=== PATIENT | male | born 1960 | race Caucasian/White ===

== ENCOUNTER 2021-07-02 21:30 | Emergency (ER) | payer OTHER ==
[2021-07-02] MEDS ORDERED: Sodium Chloride 0.9% 1,000 ML IV STA (22:07)
[2021-07-02] MEDS ORDERED: HYDROmorphone 0.5 MG/0.5 ML Syringe IVPUSH ONE ×2 (22:07→22:50)
[2021-07-02] MEDS ORDERED: Ketorolac 30 MG/ML SDV IVPUSH ONE (22:07)
[2021-07-02] MEDS ORDERED: Ondansetron 4 MG/2 ML SDV IVPUSH ONE (22:07)
--- NOTE | 2021-07-02 22:16 | EDM.PDOC ---
<Glen Melendez - Last Filed: 07/02/21 23:48> ED HPI GENERAL MEDICAL PROBLEM - General Chief Complaint: Flank Pain Stated Complaint: ABDOMINAL PAIN Time Seen by Provider: 07/02/21 22:03 - Related Data Allergies Allergy/AdvReac Type Severity Reaction Status Date / Time No Known Allergies Allergy Verified 07/02/21 21:59 Course - Re-Assessments/Exams Free Text/Narrative Re-Assessment/Exam: 07/02/21 23:48 Taking over for Albertina. His CT shows moderate left hydronephrosis secondary to a 3mm calculus at the left UVJ. Fatty infiltration of the liver, a finding which can be due to benign steatosis versus alcoholic or nonalcoholic steatohepatitis. There is cholelithiasis without evidence of acute cholecystitis. He feels better. Albertina has some prescriptions for him. I will discharge him home. Departure - Departure Time of Disposition: 23:50 Disposition: Home, Self-Care 01 Clinical Impression: Kidney stone on left side, Ureteral colic, Ureteral calculus, left - Discharge Information Instructions: Kidney Stones, [id number] Referrals: Yakelin Browne MD [Primary Care Provider] - Forms: ED Department Discharge Additional Instructions: Take routine Tylenol and ibuprofen as needed for discomfort. For pain not relieved by this, use the oxycodone with Tylenol as prescribed. Do not work or drive for 12 hours after taking this as it can be sedating. Take Zofran as needed for nausea. Strain urine each time that you void. Follow-up with your primary care provider at their next available visit. Return to ER for any new or worsening symptoms. <Albertina Jansen - Last Filed: 07/05/21 21:46> ED HPI GENERAL MEDICAL PROBLEM - General Source of Information: Reports: Patient, RN Notes Reviewed History Limitations: Reports: No Limitations - History of Present Illness INITIAL COMMENTS - FREE TEXT/NARRATIVE: Is a 60-year-old male presenting to the emergency department with complaints of acute onset of left flank pain. Symptoms began approximately 2 hours prior to coming to ER. He describes sharp stabbing pain in his left flank which radiates down into his left groin. States that he feels it slightly in his penis. He has had nausea and vomiting as well. Denies any history of kidney stones. Has not noticed any blood in his urine. Denies any fever or chills. He tried taking Pepto-Bismol, however he vomited back up. Denies any chronic medical conditions. Left Flank Pain Score (Numeric/FACES): 10 Past Medical History HEENT History: Reports: Impaired Vision Psychiatric History: Reports: Depression Endocrine/Metabolic History: Reports: Hypothyroidism ED ROS GENERAL - Review of Systems Review Of Systems: Comprehensive ROS is negative, except as noted in HPI. ED EXAM, RENAL/ - Physical Exam Exam: See Below Exam Limited By: No Limitations General Appearance: Alert, Mild Distress Respiratory/Chest: No Respiratory Distress, Lungs Clear, Normal Breath Sounds, No Accessory Muscle Use, Chest Non-Tender Cardiovascular: Normal Peripheral Pulses, Regular Rate, Rhythm, No Edema, No Gallop, No JVD, No Murmur, No Rub GI/Abdominal: Normal Bowel Sounds, Soft, Non-Tender, No Organomegaly, No Distention, No Abnormal Bruit, No Mass Back Exam: Normal Inspection, Full Range of Motion, CVA Tenderness (L). No: CVA Tenderness (R) Neurological: Alert, Oriented, CN II-XII Intact, Normal Cognition, Normal Gait, Normal Reflexes, No Motor/Sensory Deficits Psychiatric: Anxious Skin Exam: Warm, Dry, Intact, Normal Color, No Rash Course - Vital Signs Last Recorded V/S: Last Vital Signs Temp 97.0 F 07/02/21 21:54 Pulse 63 07/02/21 21:54 Resp 20 07/02/21 21:54 BP 125/96 H 07/02/21 21:54 Pulse Ox 100 07/02/21 21:54 - Orders/Labs/Meds Labs: Laboratory Tests 07/02/21 07/02/21 07/02/21 Range/Units 22:10 22:20 22:20 WBC 13.59 H (4.23-9.07) K/mm3 RBC 4.68 (4.63-6.08) M/mm3 Hgb 15.1 (13.7-17.5) gm/dl Hct 44.5 (40.1-51.0) % MCV 95.1 H (79.0-92.2) fl MCH 32.3 H (25.7-32.2) pg MCHC 33.9 (32.2-35.5) g/dl RDW Std Deviation 44.2 H (35.1-43.9) fL Plt Count 317 (163-337) K/mm3 MPV 9.5 (9.4-12.3) fl Neut % (Auto) 69.8 H (34.0-67.9) % Lymph % (Auto) 19.2 L (21.8-53.1) % [place] % (Auto) 9.8 (5.3-12.2) % Eos % (Auto) 0.7 L (0.8-7.0) Baso % (Auto) 0.3 (0.1-1.2) % Neut # (Auto) 9.48 H (1.78-5.38) K/mm3 Lymph # (Auto) 2.61 (1.32-3.57) K/mm3 [place] # (Auto) 1.33 H (0.30-0.82) K/mm3 Eos # (Auto) 0.10 (0.04-0.54) K/mm3 Baso # (Auto) 0.04 (0.01-0.08) K/mm3 Sodium 139 (136-145) mEq/L Potassium 4.2 (3.5-5.1) mEq/L Chloride 103 (98-107) mEq/L Carbon Dioxide 23 (21-32) mEq/L Anion Gap 17.2 H (5-15) BUN 24 H (7-18) mg/dL Creatinine 1.3 (0.7-1.3) mg/dL Est Cr Clr Drug Dosing 55.08 mL/min Estimated GFR (MDRD) 56 (>60) mL/min BUN/Creatinine Ratio 18.5 H (14-18) Glucose 135 H (70-99) mg/dL Calcium 9.2 (8.5-10.1) mg/dL Total Bilirubin 0.5 (0.2-1.0) mg/dL AST 37 (15-37) U/L ALT 59 (16-63) U/L Alkaline Phosphatase 47 (46-116) U/L C-Reactive Protein <0.2 (<1.0) mg/dL Total Protein 7.4 (6.4-8.2) g/dl Albumin 3.9 (3.4-5.0) g/dl Globulin 3.5 gm/dL Albumin/Globulin Ratio 1.1 (1-2) Urine Color Yellow (Yellow) Urine Appearance Clear (Clear) Urine pH 5.5 (5.0-8.0) Ur Specific [place] > or = 1.030 (1.005-1.030) Urine Protein Negative (Negative) Urine Glucose (UA) Negative (Negative) Urine Ketones Negative (Negative) Urine Occult Blood 3+ H (Negative) Urine Nitrite Negative (Negative) Urine Bilirubin Negative (Negative) Urine Urobilinogen 0.2 (0.2-1.0) Ur Leukocyte Esterase Negative (Negative) Urine RBC 50-75 H (0-5) /hpf Urine WBC 0-5 (0-5) /hpf Ur Squamous Epith Cells 0-5 (0-5) /hpf Urine Bacteria Few (FEW) /hpf Urine Mucus Few (FEW) /hpf Meds: Medications Discontinued Medications Generic Name Dose Route Start Last Admin Trade Name Freq PRN Reason Stop Dose Admin Hydromorphone HCl 0.5 mg 07/02/21 22:07 07/02/21 22:44 Hydromorphone 0.5 Mg/0.5 Ml Syringe IVPUSH 07/02/21 22:08 0.5 mg ONETIME ONE Administration Hydromorphone HCl 0.5 mg 07/02/21 22:50 07/02/21 23:02 Hydromorphone 0.5 Mg/0.5 Ml Syringe IVPUSH 07/02/21 22:51 0.5 mg ONETIME ONE Administration Sodium Chloride 1,000 mls @ 150 mls/hr 07/02/21 22:07 07/02/21 22:44 Normal Saline IV 07/03/21 04:46 150 mls/hr NOW STA Administration Ketorolac Tromethamine 30 mg 07/02/21 22:07 07/02/21 22:44 Ketorolac 30 Mg/Ml Sdv IVPUSH 07/02/21 22:08 30 mg ONETIME ONE Administration Ondansetron HCl 4 mg 07/02/21 22:07 07/02/21 22:44 Ondansetron 4 Mg/2 Ml Sdv IVPUSH 07/02/21 22:08 4 mg ONETIME ONE Administration - Re-Assessments/Exams Free Text/Narrative Re-Assessment/Exam: Patient is a 60-year-old male presenting to the emergency department with complaints of acute onset of left flank pain nausea and vomiting. On exam, patient has left CVA tenderness. Exam is otherwise unremarkable. Presentation is concerning for kidney stone. I have ordered blood work, urinalysis, CT scan of the abdomen pelvis without contrast. I will give IV fluids, Dilaudid, Toradol, and Zofran. Departure - Departure Condition: Good - Discharge Information *PRESCRIPTION DRUG MONITORING PROGRAM REVIEWED*: No *COPY OF PRESCRIPTION DRUG MONITORING REPORT IN PATIENT SOCO: No Sepsis Event Note (ED) - Evaluation Sepsis Screening Result: No Definite Risk
--- NOTE | 2021-07-03 07:30 | CT ---
CT abdomen and pelvis Technique: Multiple axial sections were obtained from above the dome of the diaphragm inferiorly through the pubic symphysis. Intravenous and oral contrast were not utilized. Study has been performed as a pulmonary angiogram protocol. Comparison: No prior abdominal imaging is available. Findings: Left kidney collecting system is dilated. Left ureter is dilated with mild surrounding inflammatory change. These findings are caused by an obstructing calculus within the distal left ureter measuring approximately 3.5 mm located close to the UVJ. Several minimal nonobstructing calculi are seen within the left kidney. Cyst is noted within the right kidney measuring 1.5 cm. The visualized lung bases show nothing acute. Patchy areas of fatty infiltration are seen within the liver. Spleen shows calcified granulomas. Adrenal glands show no nodule. Pancreas shows no discrete abnormality. Small calcified gallstones are seen within the gallbladder. Abdominal aorta shows no aneurysm. No retroperitoneal adenopathy is seen. Appendix is seen which is normal in size. No pelvic mass or adenopathy is seen. Bone window settings were reviewed which show minimal scattered degenerative change within the spine. The most prominent finding is disc space narrowing at L5-S1. Impression: 1. Obstructing stone within the distal left ureter measuring approximately 3.5 mm. 2. Several small nonobstructing calculi within the left kidney. Small right renal cyst is seen. 3. Small calcified gallstones. Fatty infiltration within the liver. Incidental granuloma within the spleen. 4. No other acute abnormality is appreciated on noncontrast CT study of the abdomen and pelvis. Diagnostic code #3 I agree with preliminary report from [facility], finalized on 07/03/21, 12:24 AM WELDER EXPLOSION, code 1
== END 2021-07-03 00:05 | disposition home or self-care (01) ==
LOC: JD.ED 21:30
DX: N13.2 Hydronephrosis with renal and ureteral calculous obstruction (principal); E03.9 Hypothyroidism, unspecified; Z79.899 Other long term (current) drug therapy
CPT/HCPCS: 36415; 74176; 80053; 81001; 85025; 86140; 96374; 96375; 96376; 99284; J1170; J1885; J2405; J7030